=== PATIENT | female | born 1995 | race Caucasian/White ===

== ENCOUNTER 2019-11-18 12:29 | Emergency (ER) | payer OTHER ==
[~2019-11-18] VITALS: Ht 165.1 cm; Wt 50.8 kg
[2019-11-18 12:49] VITALS: BP 101/83
== END 2019-11-18 13:07 | disposition home or self-care (01) ==
LOC: ER 12:49
DX: R59.1 Generalized enlarged lymph nodes (principal); Z88.1 Allergy status to other antibiotic agents; Z88.8 Allergy status to other drugs, medicaments and biological substances